=== PATIENT | female | born 1995 | race Caucasian/White ===

== ENCOUNTER 2016-03-29 10:59 | Emergency (ER) | payer SELFPAY ==
[~2016-03-29] VITALS: Ht 160 cm; Wt 88.1 kg
[~2016-03-29 10:59] MED LIST: ASPI-390 PO; HYDR-5688 PO; LOPE2TAB84 PO; ONDA4TAB10 SL; PRLSR20 PO
[2016-03-29 11:03] VITALS: TEMP 36.8; Ht 160 cm; Wt 88.1 kg
[2016-03-29 11:37] LABS: BASO % 0.3 %; BASO ABS # 0.03 K/uL (0-0.2); COMPLETE YES; EOS % 1.7 %; HEMATOCRIT 43.2 % (37-47); IG% 0.2 %; LYMPH % 7.9 %; MEAN CELL VOLUME 86.9 fL (80-100); MEAN CORPUSCULAR HGB CONC 35.6 g/dl (32-36); MEAN PLATELET VOLUME 10.3 fL (7.4-10.4); MONO % 6.2 %; NEUT % 83.7 %; PLATELET COUNT 253 K/uL (130-400); RED BLOOD COUNT 4.97 M/uL (4.2-5.4); WHITE BLOOD COUNT 10.16 K/uL (4.8-10.8)
[2016-03-29 11:43] LABS: URINE APPEARANCE CLEAR (CLEAR); URINE BILIRUBIN NEG (NEG); URINE COLOR YELLOW; URINE EPITHELIAL CELL AUTO >30 /lpf (0-5); URINE NITRITE NEG (NEG); URINE SPECIFIC GRAVITY 1.024 (1.000-1.030); UROBILINOGEN NEG (NEG); ZZUR CULT IF INDIC CLEAN CATCH NO
[2016-03-29 11:44] LABS: MANUAL MICROSCOPIC REQUIRED? NO; REVIEW REQ? NO
[2016-03-29 11:56] LABS: BUN/CREATININE RATIO 12.6 (10-20); CALCIUM 9.1 mg/dl (8.5-10.1); CREATININE 0.99 mg/dl (0.60-1.20); POTASSIUM 3.6 mmol/L (3.5-5.1)
[2016-03-29 11:59] LABS: ALB/GLOB RATIO 1.3 (0.9-2)
[2016-03-29] MEDS ORDERED: OPTIRAY 320 IV PRN (12:45)
[2016-03-29] MEDS ORDERED: ONDANSETRON INJ 2 MG/ML 2 ML VIAL IV STA (13:37)
[2016-03-29] MEDS ORDERED: MoRPHine SULFATE 4 MG/ML 1 ML CARP\\VIAL IV STA (13:37)
--- NOTE | 2016-03-29 16:00 | DIAGNOSTIC IMAGING REPORT ---
CT ABD/PELVIS IV AND ORAL CONT CLINICAL HISTORY: Abdominal pain, nausea, vomiting, diarrhea. History of cholecystectomy. COMPARISON STUDY: Biliary ultrasound dated 02/12/2016 TECHNIQUE: Following the IV administration of 94 mL of Optiray-320, CT scan of the abdomen and pelvis was performed from the lung bases to the proximal femurs. Images are reviewed in the axial, sagittal, and coronal planes. IV contrast was administered without complication. CT DOSE: 644.96 mGy.cm FINDINGS: Lower chest: There are minor right basilar atelectatic changes. Liver: There are no focal hepatic masses. There is no ductal dilatation. The portal vein appears patent. Gallbladder: Surgically absent. Minimal postsurgical changes in the region of the gallbladder bed. No fluid collections to indicate a bile leak. Spleen: Normal in size and attenuation. Pancreas: Unremarkable. Adrenal glands: Unremarkable. Kidneys: There is symmetric renal cortical enhancement. The kidneys are normal in size without hydronephrosis. Bowel: There are no transition zones indicate bowel obstruction. The appendix appears normal. There is no acute diverticulitis. Peritoneum: There is trace free fluid in the pelvis. No free air is visualized. Vasculature: The abdominal aorta is normal in course and caliber. Adenopathy: None. Pelvic viscera: The bladder, and pelvic viscera are unremarkable. Skeletal structures: No destructive osseous lesions are seen. IMPRESSION: 1. No evidence of bowel obstruction. No evidence of free air 2. Normal appendix 3. Trace free fluid in the pelvis 4. Postsurgical changes of a recent cholecystectomy. There are no fluid collections to indicate a significant bile leak. There is no evidence of ductal dilatation. There are no findings to indicate pancreatitis. Electronically signed by: Pedro Fischer M.D. 03/29/2016 3:58 PM Dictated Date/Time: 03/29/2016 3:53 PM
[2016-03-29 16:50] VITALS: BP 122/78; PULSE 67; O2SAT 97
--- NOTE | 2016-03-29 21:07 | EMERGENCY ROOM VISIT NOTE ---
ED Visit Note First contact with patient: 12:08 Chief Complaint: Abdominal pain. History of Present Illness: Ms. Frazier is a 20 year-old white female who ambulates into the ED accompanied by female friend complaining of epigastric and left mid quadrant abdominal pain. Historically patient reports patient reports she is status post cholecystectomy from 02/23/2016. She reports approximately a week after her surgery she had return of abdominal pain associated with nausea and vomiting. At 2 weeks after her surgery her symptoms seemed to resolve at the time of her follow-up with her surgeon but then returned approximately one week ago. On her last follow- up she was scheduled for a outpatient abdominal/pelvic CT and a EGD. She did speak to her surgeon prior to arrival at the ED today because of her symptoms and was encouraged to come to the ED. Patient reports cyclic episodes of increasing nausea, followed by increasing abdominal pain, vomiting and then relief of her discomfort. This happens 3 or 4 times a day for last week. Her symptoms starts typically after eating. Currently she describes her pain as a epigastric throbbing and sharp sensation. She rates her discomfort at its worse 8/10 but is currently 4/10. She denies radiation of the pain but does feel that it radiates over into the left mid quadrant area. She has not identified any alleviating factors related to the symptoms. She reports that she has been using narcotics since surgery and Zofran without relief of her discomfort/symptoms. Additionally she reports intermittently and not always associated with her pain she starts to have hot flashes and about every other day she has 2-3 episodes of brown watery stools that she calls diarrhea. Patient denies betty fevers, sweats, skin eruptions, skin color changes, upper respiratory tract symptoms, shortness of breath, chest pain, hematemesis, constipation, rectal bleeding, black/tarry stools, urinary symptoms, hematuria, vaginal bleeding, vaginal discharge, back/flank pain. Review of Systems: As noted above in history of present illness. All body systems were reviewed and found to be negative as noted above. Past Medical History: As previously noted. Current Medications: Zofran. Allergies to Medications: Augmentin. Social History: Patient is currently employed; she feels safe in her home environment; she admits to tobacco use and denies alcohol use. Physical Examination: Vital Signs: Date Time Temp Pulse Resp B/P Pulse Ox O2 Delivery O2 Flow Rate FiO2 03/29/16 16:50 67 18 122/78 97 03/29/16 15:14 51 18 115/60 98 Room Air 03/29/16 12:59 62 18 118/51 98 Room Air 03/29/16 11:03 36.8 77 16 105/61 96 Room Air GENERAL: 20-year-old female in mild to moderate distress due to pain, nontoxic- appearing, afebrile and hemodynamically stable. NEUROLOGICAL: Awake, alert and oriented to person, place and time. Answering questions appropriately and following commands. Normal gait. Good hand eye coordination. SKIN: Warm, dry and pink. No soft tissue eruptions or trauma noted. Patient's surgical incisions are clean dry and intact without signs of infection. HEENT: Atraumatic and normocephalic. PERRLA. Sclera white and conjunctiva pink. Oral cavity moist and pink. Pharynx is nonerythematous or edematous. Speech normal. No lymphadenopathy. Trachea midline. No jugular venous distention. BACK: No tenderness over the bony spine. No CVA tenderness. THORAX: Lungs sounds are clear to auscultation and equal bilaterally with symmetrical chest wall. No wheezing, rales or rhonchi. No crepitus, tenderness , subcutaneous air or deformities noted. HEART: Regular rate and rhythm. No gallops, rubs or murmurs are appreciated. ABDOMEN: Obese and soft with moderate tenderness in the epigastrium and minimal tenderness in the mid left quadrant. Decreased bowel sounds in all quadrants. No guarding, rigidity or organomegaly. EXTREMITIES: Moves all extremities well on command and with purpose. All distal neurovascular statuses are intact and equal bilaterally. ED Course: Patient is assessed as noted above. Laboratory Testing: Test 03/29/16 11:13 03/29/16 11:19 Range/Units Urine Color YELLOW Urine Appearance CLEAR CLEAR Urine pH 7.0 4.5-7.5 Urine Specific [place] 1.024 1.000-1.030 Urine Protein NEG NEG Urine Glucose (UA) NEG NEG Urine Ketones NEG NEG Urine Occult Blood 2+ NEG Urine Nitrite NEG NEG Urine Bilirubin NEG NEG Urine Urobilinogen NEG NEG Urine Leukocyte Esterase NEG NEG Urine WBC (Auto) 1-5 0-5 /hpf Urine RBC (Auto) 10-30 0-4 /hpf Urine Hyaline Casts (Auto) 1-5 0-5 /lpf Urine Epithelial Cells (Auto) >30 0-5 /lpf Urine Bacteria (Auto) NEG NEG White Blood Count 10.16 4.8-10.8 K/uL Red Blood Count 4.97 4.2-5.4 M/uL Hemoglobin 15.4 12.0-16.0 g/dL Hematocrit 43.2 37-47 % Mean Corpuscular Volume 86.9 80-100 fL Mean Corpuscular Hemoglobin 31.0 25-34 pg Mean Corpuscular Hemoglobin Concent 35.6 32-36 g/dl Platelet Count 253 130-400 K/uL Mean Platelet Volume 10.3 7.4-10.4 fL Neutrophils (%) (Auto) 83.7 % Lymphocytes (%) (Auto) 7.9 % Monocytes (%) (Auto) 6.2 % Eosinophils (%) (Auto) 1.7 % Basophils (%) (Auto) 0.3 % Neutrophils # (Auto) 8.51 1.4-6.5 K/uL Lymphocytes # (Auto) 0.80 1.2-3.4 K/uL Monocytes # (Auto) 0.63 0.11-0.59 K/uL Eosinophils # (Auto) 0.17 0-0.5 K/uL Basophils # (Auto) 0.03 0-0.2 K/uL RDW Standard Deviation 41.6 36.4-46.3 fL RDW Coefficient of Variation 13.1 11.5-14.5 % Immature Granulocyte % (Auto) 0.2 % Immature Granulocyte # (Auto) 0.02 0.00-0.02 K/uL Sodium Level 143 136-145 mmol/L Potassium Level 3.6 3.5-5.1 mmol/L Chloride Level 107 98-107 mmol/L Carbon Dioxide Level 28 21-32 mmol/L Anion Gap 8.0 3-11 mmol/L Blood Urea Nitrogen 12 7-18 mg/dl Creatinine 0.99 0.60-1.20 mg/dl Est Creatinine Clear Calc Drug Dose 95.4 ml/min Estimated GFR () 95.1 Estimated GFR (Non- 82.0 BUN/Creatinine Ratio 12.6 10-20 Random Glucose 96 70-99 mg/dl Calcium Level 9.1 8.5-10.1 mg/dl Total Bilirubin 0.3 0.2-1 mg/dl Aspartate Amino Transf (AST/SGOT) 6 15-37 U/L Alanine Aminotransferase (ALT/SGPT) 19 12-78 U/L Alkaline Phosphatase 55 45-117 U/L Total Protein 7.5 6.4-8.2 gm/dl Albumin 4.2 3.4-5.0 gm/dl Globulin 3.3 2.5-4.0 gm/dl Albumin/Globulin Ratio 1.3 0.9-2 Lipase 90 73-393 U/L Contrast Abdominal/Pelvic CT: Was read by myself and the radiologist and shows minor right basilar atelectasis, no masses, no ductal dilatation and the portal vein appears patent, gallbladder is surgically absent with minimal changes but no fluid collections tunicate week, normal-appearing spleen, normal-appearing pancreas, normal-appearing adrenal glands, normal-appearing kidneys without hydronephrosis, no indication of bowel obstruction, normal-appearing appendix, no acute diverticulitis, trace free fluid in the pelvis but no free air, abdominal aorta is normal in size and course, no adenopathy, pelvic visceral is unremarkable and skeletal structures shows no destructive lesions. I do note that there appears to be a mild increase in fecal retention. Patient was hydrated with normal saline and received a 4 mg of morphine IV for pain and 4 mg of Zofran IV for nausea. Patient was reassessed multiple times during his stay in the emergency department. Patient's case was reviewed with Dr. Bhagat; we agreed on diagnostic approach, treatment, disposition and plan. Patient was educated about tonight's findings and instructed on her treatment plan; she verbalizes understanding and agreement with this plan. Clinical Impression: Epigastric abdominal pain. Nausea/vomiting. Diarrhea. Decision-Making: Initially my differential diagnosis I considered postsurgical abscess, bowel obstruction, postsurgical infections, constipation, pancreatitis , pyelonephritis and other causes. Disposition: Patient discharged home in stable condition; prior to departure she was reassessed and subjectively reported she was feeling better and rated her overall discomfort 4/10. Plan: Patient was encouraged to alternate ibuprofen and acetaminophen as needed for pain every 3 hours. Patient was encouraged to use her Zofran every 4-6 hours as needed for nausea/ vomiting. Patient was encouraged use a bland diet for the next 48 hours. Patient was encouraged to use [id number] Colace and MiraLAX for total 7 days. Patient was encouraged to call her surgeon tomorrow and inform them of tonight' s ED visit. Patient was encouraged return ED for worsening/uncontrolled pain, uncontrolled nausea/vomiting, uncontrolled diarrhea, bloody stools, bloody vomitus, fevers or any new/concerning symptoms.
== END 2016-03-29 16:50 | disposition home or self-care (01) ==
LOC: C.EDB 11:01 → C.EDC 16:50
DX: R10.13 Epigastric pain (principal); R11.2 Nausea with vomiting, unspecified; R19.7 Diarrhea, unspecified

== ENCOUNTER → 2016-04-16 | Day surgery (SDC) | payer SELFPAY ==
[2016-04-13 10:16] VITALS: BMI 33.0
[~2016-04-16] VITALS: Ht 160 cm; Wt 85.5 kg
[~2016-04-16] MED LIST changes: -ASPI-390 PO; -HYDR-5688 PO; +LIDOCAINE HCL 2% 2 ML VIAL (20MG/ML) ONE; -LOPE2TAB84 PO; +METR-163 PO; +MIDAZOLAM HCL 1 MG/ML 2ML VIAL ONE; -ONDA4TAB10 SL; +ONDANSETRON INJ 2 MG/ML 2 ML VIAL ONE; +OXYC1TAB3 PO; -PRLSR20 PO; +PROPOFOL IV EMULSION 10 MG/ML 20 ML VIAL IV ONE; +SODIUM CHLORIDE 0.9% 500ML 500 ML IV ONE; +SULF800T23 PO
[2016-04-16 11:32] VITALS: Ht 160 cm; Wt 85.5 kg
[2016-04-16 11:40] VITALS: TEMP 36.9
--- NOTE | 2016-04-16 12:10 | Endo History and Physical ---
History & Physical Date of Service: Apr 16, 2016. Chief Complaint: chronic vomiting and nausea Referring Physician: Loki Londono History of Present Illness 21 yo CF who presents for EGD secondary to Nausea and vomiting. Past Surgical History Hx Cardiac Surgery: No Hx Internal Defibrillator: No Hx Pacemaker: No Hx Abdominal Surgery: Yes ([facility]) Hx of Implantable Prosthesis: No Hx Post-Op Nausea and Vomiting: No Hx Cancer Surgery: No Hx Thoracic Surgery: No Hx Orthopedic: No Hx Urinary Tract Surgery: No Family History None Social History Smoking Status: Current Every Day Smoker Hx Substance Use: No Hx Alcohol Use: No Allergies Coded Allergies: Amoxicillin (Verified Allergy, Mild, ITCHY RASH, 04/16/16) CALLED ON 05/09/15 Clavulanic Acid (Verified Allergy, Mild, ITCHY RASH, 04/16/16) CALLED ON 05/09/15 Current Medications Reported Home Medications Medications Dose Route/Sig Max Daily Dose Days Date Category No Active Prescriptions or Reported Medications Rx Vital Signs Weight (Kilograms): 85.45 Height (Feet): 5 Height (Inches): 3 Date Time Temp Pulse Resp B/P Pulse Ox O2 Delivery O2 Flow Rate FiO2 04/16/16 11:40 36.9 69 20 99/51 99 Room Air Physical Exam General Appearance: WD/WN, no apparent distress Respiratory/Chest: Auscultation: breath sounds normal Cardiovascular: Heart Auscultation: RRR Abdomen: Bowel Sounds: normal Inspection & Palpation: soft, non-distended, no tenderness, guarding & rebound Assessment and Plan Assessment: 21 yo CF who presents for EGD secondary to Nausea and vomiting. Plan: Proceed with EGD.
--- NOTE | 2016-04-16 12:23 | Discharge Instructions ---
Endoscopy Patient Instructions Date / Procedure(s) Performed Apr 16, 2016. EGD Allergy Information Coded Allergies: Amoxicillin (Verified Allergy, Mild, ITCHY RASH, 04/16/16) CALLED ON 05/09/15 Clavulanic Acid (Verified Allergy, Mild, ITCHY RASH, 04/16/16) CALLED ON 05/09/15 Discharge Date / Findings Apr 16, 2016. Gastritis s/p biopsies Medication Instructions Start Omeprazole 20mg by mouth each morning 1/2 hour prior to breakfast. Reported Home Medications Medications Dose Route/Sig Max Daily Dose Days Date Category No Active Prescriptions or Reported Medications Rx Provider Instructions Activity Restrictions - No exercising or heavy lifting for 24 hours. - Do not drink alcohol the day of the procedure. - Do not drive a car or operate machinery until the day after the procedure. - Do not make any important decisions or sign important papers in 24 hours after the procedure. Following Day: - Return to full activity which may include returning to work/school. Diet Start your diet with liquids and light foods (jello, soup, juice, toast). Then eat your usual diet if not nauseated. Treatment For Common After Affects For mild abdominal pain, bloating, or excessive gas: - Rest - Eat lightly - Lie on right side Follow-Up Information Follow-up with Loki Londono as scheduled Anesthesia Information What You Should Know You have had a procedure that required some medicine to reduce anxiety and discomfort. This treatment is called moderate sedation. After receiving the treatment, you may be sleepy, but you will be able to breathe on your own. The effects of the treatment may last for several hours. Follow these instructions along with Activity/Diet recommendations noted above: * Do NOT do anything where dizziness or clumsiness would be dangerous. * Rest quietly at home today, then you can be up and about tomorrow. * Have a responsible person stay with you the rest of today. * You may have had an I.V. today. If so, you may take the dressing off later today. Recommendations Call your doctor if: * Trouble breathing * Continuous vomiting for more than 24 hours * Temperature above 101 degrees * Severe abdominal pain or bloating * Pain not relieved by pain medicine ordered * There is increased drainage or redness from any incision * A large amount of rectal bleeding greater than 2-3 tablespoons. (If you had a polyp/s removed or have hemorrhoids, a small amount of blood - from the rectum is to be expected.) * You have any unanswered questions or concerns. IN THE EVENT OF A SERIOUS EMERGENCY, GO TO THE NEAREST EMERGENCY ROOM Your discharge instructions were prepared by provider Jessee Trejo. Patient Instructions Signature Page Mary Frazier Patient (or Guardian) Signature/Date: I have read and understand the instructions given to me by my caregivers. Caregiver/RN/Doctor Signature/Date: The above-named patient and/or guardian has received patient instructions on this date. + Original Patient Signature Page (only) stays with chart. Please make copy for patient.
--- NOTE | 2016-04-16 12:27 | GI REPORT ---
Procedure Date: 04/16/2016 12:07 PM Procedure: Upper GI endoscopy Indications: Nausea with vomiting Medicines: Monitored Anesthesia Care Complications: No immediate complications. Estimated Blood Loss: Estimated blood loss: none. Procedure: Pre-Anesthesia Assessment: - Prior to the procedure, a History and Physical was performed, and patient medications and allergies were reviewed. The patient's tolerance of previous anesthesia was also reviewed. The risks and benefits of the procedure and the sedation options and risks were discussed with the patient. All questions were answered, and informed consent was obtained. Prior Anticoagulants: The patient has taken no previous anticoagulant or antiplatelet agents. ASA Grade Assessment: II - A patient with mild systemic disease. After reviewing the risks and benefits, the patient was deemed in satisfactory condition to undergo the procedure. After obtaining informed consent, the endoscope was passed under direct vision. Throughout the procedure, the patient's blood pressure, pulse, and oxygen saturations were monitored continuously. The scope was introduced through the mouth, and advanced to the second part of duodenum. The upper GI endoscopy was accomplished without difficulty. The patient tolerated the procedure well. Findings: The examined esophagus was normal. Localized mild inflammation characterized by erythema was found in the gastric antrum. Biopsies were taken with a cold forceps for histology. The examined duodenum was normal. Impression: - Normal esophagus. - Gastritis. Biopsied. - Normal examined duodenum. Recommendation: - Resume previous diet. - Continue present medications. - Await pathology results. - Return to GI office as previously scheduled. Jessee Trejo, DO 04/16/2016 12:28:15 PM This report has been signed electronically. Note Initiated On: 04/16/2016 12:07 PM I attest to the content of the Intraoperative Record and orders documented therein, exceptions below
[2016-04-16 12:55] VITALS: BP 104/64; PULSE 51; O2SAT 97
--- NOTE | 2016-04-16 12:59 | Anesthesiology Progress Note ---
Anesthesia Post Op Note Date & Time Apr 16, 2016 at 13:00 Vital Signs Pain Intensity: 0 Vital Signs Past 12 Hours Date Time Temp Pulse Resp B/P Pulse Ox O2 Delivery O2 Flow Rate FiO2 04/16/16 12:40 52 97/58 97 Room Air 04/16/16 12:25 62 20 92/69 93 Room Air 04/16/16 11:40 36.9 69 20 99/51 99 Room Air Notes Mental Status: alert / awake / arousable, participated in evaluation Pt Amnestic to Procedure: Yes Nausea / Vomiting: adequately controlled Pain: adequately controlled Airway Patency, RR, SpO2: stable & adequate BP & HR: stable & adequate Hydration State: stable & adequate Anesthetic Complications: no major complications apparent
== END | disposition home or self-care (01) ==
LOC: C.GI 11:13
PROVIDERS: ATTEND Internal Medicine
DX: R11.2 Nausea with vomiting, unspecified (principal); K29.60 Other gastritis without bleeding; F17.200 Nicotine dependence, unspecified, uncomplicated; Z90.49 Acquired absence of other specified parts of digestive tract

== ENCOUNTER → 2016-08-31 | Outpatient (CLI) | payer OTHER ==
[~2016-08-31] MED LIST changes: -LIDOCAINE HCL 2% 2 ML VIAL (20MG/ML) ONE; -MIDAZOLAM HCL 1 MG/ML 2ML VIAL ONE; -ONDANSETRON INJ 2 MG/ML 2 ML VIAL ONE; -PROPOFOL IV EMULSION 10 MG/ML 20 ML VIAL IV ONE; -SODIUM CHLORIDE 0.9% 500ML 500 ML IV ONE
== END ==
LOC: C.PAPS 09:34
PROVIDERS: ATTEND Physician Assistant
DX: Z12.4 Encounter for screening for malignant neoplasm of cervix (principal)

== ENCOUNTER → 2016-08-31 | Outpatient (CLI) | payer OTHER ==
[2016-09-03 07:27] LABS: CHLAMYDIA TRACH RNA*** NOT DETECTED (NOT DETECTED); GC (NEIS GONORRHOEAE)RNA** NOT DETECTED (NOT DETECTED)
== END ==
LOC: C.LABSPEC 17:42
PROVIDERS: ATTEND Physician Assistant
DX: Z12.4 Encounter for screening for malignant neoplasm of cervix (principal)

== ENCOUNTER → 2016-09-17 | Outpatient (CLI) | payer OTHER | END | disposition home or self-care (01) | LOC: C.LAB1850 15:26 | PROVIDERS: ATTEND Physician Assistant | DX: Z20.6 Contact with and (suspected) exposure to human immunodeficiency virus [HIV] (principal) ==

== ENCOUNTER 2016-11-08 20:27 | Emergency (ER) | payer OTHER ==
[~2016-11-08] VITALS: Ht 160 cm; Wt 75.5 kg
[2016-11-08 20:31] VITALS: BP 123/80; PULSE 77; TEMP 36.7; O2SAT 97; Ht 160 cm; Wt 75.5 kg
[2016-11-08] MEDS ORDERED: HYDROmorphone INJ 1 MG/ML SYR IM STA (20:40)
[2016-11-08] MEDS ORDERED: ONDANSETRON 4MG OD TAB PO STA (20:40)
[2016-11-08] MEDS ORDERED: KETOROLAC TROMETHAMINE 60 MG/2 ML VIAL IM STA (20:40)
[2016-11-08] MEDS ORDERED: METRONIDAZOLE 250 MG TAB PO STA ×2 (20:40→22:05)
[2016-11-08] MEDS ORDERED: SEPTRA DS HOME PACK 1 EA VIAL PO ONE (20:45)
--- NOTE | 2016-11-08 21:23 | DIAGNOSTIC IMAGING REPORT ---
LEFT HAND MIN 3 VIEWS ROUTINE, RIGHT HAND MIN 3 VIEWS ROUTINE HISTORY: 21 years-old Female acute bilateral hand pain status post dog bite COMPARISON: None available TECHNIQUE: 3 views of the bilateral hands for a total of 6 images FINDINGS: LEFT HAND: There is no acute fracture, dislocation or significant degenerative changes. Negative for opaque foreign body. RIGHT HAND: No acute fracture, dislocation or significant degenerative changes. Negative for opaque foreign body. There is mild focal skin irregularity and soft tissue thickening of the distal fourth digit. IMPRESSION: 1. No acute bony abnormality of either hand. 2. No radiopaque foreign body. 3. Suggested laceration of the distal fourth digit on the right. The above report was generated using voice recognition software. It may contain grammatical, syntax or spelling errors. Electronically signed by: Alex Kate M.D. 11/08/2016 9:22 PM Dictated Date/Time: 11/08/2016 9:19 PM
[2016-11-08] MEDS ORDERED: METR-163 PO (21:42)
[2016-11-08] MEDS ORDERED: OXYC1TAB3 PO (21:42)
[2016-11-08] MEDS ORDERED: SULF800T23 PO (21:42)
[2016-11-08] MEDS ORDERED: OXYCODONE IR HOME PACK PO ONE (22:15)
--- NOTE | 2016-11-08 22:16 | EMERGENCY ROOM VISIT NOTE ---
History First contact with patient: 20:34 Chief Complaint: HAND PAIN/INJURY Stated Complaint: BILATERAL HAND INJURIES History of Present Illness The patient is a 21 year old female who presents to the Emergency Room with complaints of injuries to both hands after attempting to break up a fight between her 2 dogs. The dog examination's are up-to-date, and the patient's tetanus immunization is up-to-date. She reports several puncture wounds to the fingers. She denies any pain of the wrist or elbows. The patient is right-hand -dominant, and rates her pain a 10 out of 10. Review of Systems 10 system review was performed and was negative except for pertinent positives and negatives as indicated in history of present illness Past Medical/Surgical History Medical Problems: (1) Abrasion of head or scalp (2) ACTIVITIES INVOLVING CHEERLEADING (3) Acute gastroenteritis (4) CONCUSSION W/O COMA (5) CONTUSION OF HAND(S) (6) Contusion of heel (7) CONTUSION OF KNEE (8) FX DISTAL ULNA-CLOSED (9) FX METATARSAL-CLOSED (10) Head injury (11) Nausea, vomiting, and diarrhea (12) Pneumonia (13) Pneumonia (14) Right otitis media (15) SPRAIN OF ANKLE NOS (16) SPRAIN OF FOOT NOS (17) SPRAIN OF NECK (18) UTI (urinary tract infection) Surgical Problems: (1) S/P tube myringotomy Family History Cancer Diabetes mellitus FH: migraines Social History Smoking Status: Current Every Day Smoker Alcohol Use: none Drug Use: none Marital Status: single Housing Status: lives with roommate Occupation Status: employed, student Current/Historical Medications Scheduled Metronidazole (Flagyl), 500 MG PO TID Sulfa/Trimethoprim (Bactrim Ds 800MG/160MG), 1 TAB PO BID Scheduled PRN Oxycodone Ir (Roxicodone Ir), 1-2 TAB PO Q4H PRN for Pain Physical Exam Vital Signs Date Time Temp Pulse Resp B/P (MAP) Pulse Ox O2 Delivery O2 Flow Rate FiO2 11/08/16 20:31 36.7 77 18 123/80 97 Room Air Physical Exam CONSTITUTIONAL: Healthy and well nourished. Alert and oriented X 3 with positive affect. Patient appears in moderate discomfort from pain. HEENT: Normocephalic, atraumatic. Pupils equal, round and reactive. NECK: Full active range of motion without discomfort. MUSCULOSKELETAL: Examination shows several puncture wounds and abrasions to both hands. None of the puncture wounds require wound closure. She has moderate edema of both hands. No active bleeding. Capillary refill of the fingers is less than 2 seconds. INTEGUMENTARY: No rash or other significant dermatologic conditions noted. NEUROLOGIC: Hands and fingers are sensory intact. Medical Decision & Procedures ER Provider Diagnostic Interpretation: My interpretation of bilateral hand x-rays does not show any obvious fractures, dislocations or radiopaque foreign bodies. Radiologist reports are as follows: LEFT HAND MIN 3 VIEWS ROUTINE, RIGHT HAND MIN 3 VIEWS ROUTINE HISTORY: 21 years-old Female acute bilateral hand pain status post dog bite COMPARISON: None available TECHNIQUE: 3 views of the bilateral hands for a total of 6 images FINDINGS: LEFT HAND: There is no acute fracture, dislocation or significant degenerative changes. Negative for opaque foreign body. RIGHT HAND: No acute fracture, dislocation or significant degenerative changes. Negative for opaque foreign body. There is mild focal skin irregularity and soft tissue thickening of the distal fourth digit. IMPRESSION: 1. No acute bony abnormality of either hand. 2. No radiopaque foreign body. 3. Suggested laceration of the distal fourth digit on the right. Medications Administered Medications (Trade) Dose Ordered Sig/Che Route Start Time Stop Time Status Last Admin Dose Admin Trimethoprim/ Sulfamethoxazole (Sulfameth/ Trimeth Ds 800/ 160MG Home Pack) 1 homepack UD ONCE PO 11/08/16 20:45 11/08/16 20:46 DC 11/08/16 20:57 1 HOMEPACK Metronidazole (Flagyl Tab) 1,000 mg NOW STAT PO 11/08/16 20:40 11/08/16 20:46 DC 11/08/16 20:57 1,000 MG Hydromorphone HCl (Dilaudid Inj) 1 mg ONE STAT IM 11/08/16 20:40 11/08/16 20:46 DC 11/08/16 20:57 1 MG Ketorolac Tromethamine (Toradol Inj) 60 mg NOW STAT IM 11/08/16 20:40 11/08/16 20:46 DC 11/08/16 20:58 60 MG Ondansetron HCl (Zofran Odt) 4 mg NOW STAT PO 11/08/16 20:40 11/08/16 20:46 DC 11/08/16 20:57 4 MG ED Course Patient history and physical exam were performed. Nurse's notes were reviewed. Vital signs were reviewed and normal. The patient was administered IM Dilaudid and Toradol, along with Zofran ODT, for pain. She was also administered Bactrim DS and Flagyl 500 mg while in the emergency department. The patient does have a rather severe allergic reaction to amoxicillin. X-rays of bilateral hands were normal. The patient's hands were cleansed, and bacitracin with scarlet taping of appropriate fingers was applied. The patient was provided home packs and prescriptions for Bactrim DS, Flagyl and OxyIR 5 mg. The patient will follow-up with [facility] for further reevaluation. The patient was happy with plan of care, voiced understanding of all discharge instructions, and rated her pain a 3 out of 10 at the conclusion of my exam. Medical Decision [place] Drug Monitoring Program Search Results: patient reviewed within database, no issues identified Medication Reconcilliation Current Medication List: was personally reviewed by [place] Blood Pressure Screening Patient's blood pressure: Normal blood pressure Impression Primary Impression: Dog bites to bilateral hands Departure Information Prescriptions Oxycodone Ir (Roxicodone Ir) 5 Mg Tab 1-2 TAB PO Q4H Y for Pain, #15 TAB For Initial Treatment Prov: Salvador Chao PA 11/08/16 Metronidazole (Flagyl) 500 Mg Tab 500 MG PO TID for Pain for 5 Days, #15 TAB For Initial Treatment Prov: Salvador Chao PA 11/08/16 Sulfa/Trimethoprim (Bactrim Ds 800MG/160MG) Tab 1 TAB PO BID for 5 Days, #10 TAB Prov: Salvador Chao PA 11/08/16 Referrals Randy Gaines III, M.D. (PCP) Patient Instructions My [facility]
== END 2016-11-08 22:06 | disposition home or self-care (01) ==
LOC: C.EDB 20:29 → C.EDD 22:06
DX: S61.451A Open bite of right hand, initial encounter (principal); S61.452A Open bite of left hand, initial encounter; W54.0XXA Bitten by dog, initial encounter; Z87.01 Personal history of pneumonia (recurrent); Z87.440 Personal history of urinary (tract) infections; Z80.9 Family history of malignant neoplasm, unspecified; Z83.3 Family history of diabetes mellitus; F17.210 Nicotine dependence, cigarettes, uncomplicated

== ENCOUNTER 2017-04-20 17:39 | Emergency (ER) | payer OTHER ==
[~2017-04-20] VITALS: Ht 157.5 cm; Wt 81.8 kg
[~2017-04-20 17:39] MED LIST changes: -METR-163 PO; -SULF800T23 PO
[2017-04-20 17:41] VITALS: TEMP 36.8; Ht 157.5 cm; Wt 81.8 kg
[2017-04-20] MEDS ORDERED: SODIUM CHLORIDE 0.9% 1000ML 1,000 ML IV STA (17:58)
[2017-04-20 18:29] LABS: BASO % 0.4 %; BASO ABS # 0.03 K/uL (0-0.2); EOS % 0.9 %; EOS ABS # 0.07 K/uL (0-0.5); HEMATOCRIT 41.9 % (37-47); HEMOGLOBIN 14.7 g/dL (12.0-16.0); IG# 0.01 K/uL (0.00-0.02); LYMPH % 6.8 %; LYMPH ABS # 0.53 K/uL (1.2-3.4); MEAN CELL VOLUME 88.4 fL (80-100); MEAN CORPUSCULAR HGB CONC 35.1 g/dl (32-36); MEAN PLATELET VOLUME 9.9 fL (7.4-10.4); MONO % 7.1 %; MONO ABS # 0.56 K/uL (0.11-0.59); NEUT % 84.7 %; NEUT ABS # 6.65 K/uL (1.4-6.5); PLATELET COUNT 198 K/uL (130-400); RED CELL DISTRIBUTION WIDTH CV 12.6 % (11.5-14.5); RED CELL DISTRIBUTION WIDTH SD 40.5 fL (36.4-46.3); WHITE BLOOD COUNT 7.85 K/uL (4.8-10.8)
[2017-04-20 18:44] LABS: ALBUMIN 3.8 gm/dl (3.4-5.0); CALCIUM 8.6 mg/dl (8.5-10.1); CREATININE 0.89 mg/dl (0.60-1.20); POTASSIUM 3.2 mmol/L (3.5-5.1)
[2017-04-20 18:47] LABS: TOTAL PROTEIN 7.2 gm/dl (6.4-8.2)
--- NOTE | 2017-04-20 19:01 | DIAGNOSTIC IMAGING REPORT ---
ABDOMEN 2VIEW W/PA CHEST RTN CLINICAL HISTORY: 22 years-old Female presenting with n/v/d. TECHNIQUE: PA view of the chest and supine and upright views of the abdomen were obtained. COMPARISON: CT from 03/29/2016 and chest and abdomen radiographs from 02/12/2016. FINDINGS: Cardiomediastinal silhouette normal. Lungs and pleural spaces clear. Cholecystectomy clips noted. Nonobstructive bowel gas pattern. No gross pneumoperitoneum. Allowing for bowel gas and stool, no calcifications to suggest nephrolithiasis. Osseous structures normal. IMPRESSION: 1. No acute cardiopulmonary disease. 2. No radiographic evidence of acute intra-abdominal pathology. Electronically signed by: Shilo Thomas M.D. 04/20/2017 7:00 PM Dictated Date/Time: 04/20/2017 6:58 PM
[2017-04-20 19:03] LABS: INFLUENZA B ANTIGEN Neg for Influ B (NEG)
[2017-04-20] MEDS ORDERED: ONDANSETRON 8 MG/54 ML D5W IV STA (19:56)
[2017-04-20] MEDS ORDERED: ONDANSETRON INJ 8 MG in DEXTROSE 5% 50ML 50 ML IV ONE (20:45)
--- NOTE | 2017-04-20 21:01 | EMERGENCY ROOM VISIT NOTE ---
History Report prepared by Toño: Cinthia Lamar Under the Supervision of: Dr. Marlyn Don D.O. First contact with patient: 17:46 Chief Complaint: FLU LIKE SX Stated Complaint: PUKING, BODY ACHE, FEVER, DIARRHEA, NECK PAIN History of Present Illness The patient is a 22 year old female who presents to the Emergency Room with complaints of persistent illness starting 4 days ago. Her symptoms started with vomiting 4 days ago. She started having diarrhea 2 days ago. Her stools have been watery. She is nauseous and unable to keep anything down. Today she started having right sided neck pain which worsens with turning her head. She reports intermittent fever and chills. She has not taken her temperature. She has tried taking over the counter medications to no significant relief. She has rash, abdominal pain, and body aches. She denies any blood or dark colors in her vomit or diarrhea. Her friend was recently sick with vomiting and diarrhea which lasted 24 hours. She denies any chance of . She has had a cholecystectomy. No recent travel, no dietary changes, no recent use of antibiotics. Source of History: patient Onset: 4 days ago Position: other (global) Quality: other (illness) Timing: other (persistent) Associated Symptoms: + fevers, + chills, + neck pain, + nausea, + vomiting, + abdominal pain, + diarrhea, No melena, No hematochezia, No rash Review of Systems See HPI for pertinent positives & negatives. A total of 10 systems reviewed and were otherwise negative. Past Medical & Surgical Medical Problems: (1) Abrasion of head or scalp (2) ACTIVITIES INVOLVING CHEERLEADING (3) Acute gastroenteritis (4) CONCUSSION W/O COMA (5) CONTUSION OF HAND(S) (6) Contusion of heel (7) CONTUSION OF KNEE (8) FX DISTAL ULNA-CLOSED (9) FX METATARSAL-CLOSED (10) Head injury (11) Nausea, vomiting, and diarrhea (12) Pneumonia (13) Pneumonia (14) Right otitis media (15) SPRAIN OF ANKLE NOS (16) SPRAIN OF FOOT NOS (17) SPRAIN OF NECK (18) UTI (urinary tract infection) Surgical Problems: (1) S/P tube myringotomy Family History Cancer Diabetes mellitus FH: migraines Social History Smoking Status: Current Every Day Smoker Alcohol Use: none Drug Use: none Marital Status: single Housing Status: lives with roommate Occupation Status: employed Current/Historical Medications Scheduled Ondasetron Odt (Zofran Odt), 4 MG SL Q6H Allergies Coded Allergies: Amoxicillin (Verified Allergy, Intermediate, ITCHY RASH, 11/08/16) CALLED ON 05/09/15 Clavulanic Acid (Verified Allergy, Intermediate, ITCHY RASH, 11/08/16) CALLED ON 05/09/15 Physical Exam Vital Signs Date Time Temp Pulse Resp B/P (MAP) Pulse Ox O2 Delivery O2 Flow Rate FiO2 04/20/17 21:40 70 16 110/80 100 04/20/17 20:30 80 16 112/70 97 04/20/17 17:41 36.8 93 18 104/70 97 Room Air Physical Exam GENERAL: alert, well appearing, well nourished, no distress, non-toxic EYE EXAM: normal conjunctiva, PERRL and EOM's grossly intact OROPHARYNX: no exudate, no erythema, lips, buccal mucosa, and tongue normal and mucous membranes are moist NECK: supple, no nuchal rigidity, no masses, no adenopathy, no reproducible pain with palpation of the neck, FROM LUNGS: Clear to auscultation. Normal chest wall mechanics HEART: no murmurs, S1 normal and S2 normal ABDOMEN: abdomen soft, non-tender, normo-active bowel sounds, no masses, no rebound or guarding. BACK: Back is symmetrical on inspection and there is no deformity, no midline tenderness, no CVA tenderness. SKIN: no rashes and no bruising UPPER EXTREMITIES: upper extremities are grossly normal. FROM, nml pulses. LOWER EXTREMITIES: No pitting edema. FROM, nml pulses. NEURO EXAM: Normal sensorium, cranial nerves II-XII grossly intact, normal speech, no gross weakness of arms, no gross weakness of legs. Medical Decision & Procedures ER Provider Diagnostic Interpretation: Xray results have been interpreted by the radiologist and by me. ABDOMEN 2VIEW W/PA CHEST RTN CLINICAL HISTORY: 22 years-old Female presenting with n/v/d. TECHNIQUE: PA view of the chest and supine and upright views of the abdomen were obtained. COMPARISON: CT from 03/29/2016 and chest and abdomen radiographs from 02/12/2016. FINDINGS: Cardiomediastinal silhouette normal. Lungs and pleural spaces clear. Cholecystectomy clips noted. Nonobstructive bowel gas pattern. No gross pneumoperitoneum. Allowing for bowel gas and stool, no calcifications to suggest nephrolithiasis. Osseous structures normal. IMPRESSION: 1. No acute cardiopulmonary disease. 2. No radiographic evidence of acute intra-abdominal pathology. Electronically signed by: Shilo Thomas M.D. 04/20/2017 7:00 PM Dictated Date/Time: 04/20/2017 6:58 PM Laboratory Results 04/20/17 18:15 Red Blood Count 4.74, Mean Corpuscular Volume 88.4, Mean Corpuscular Hemoglobin 31.0, Mean Corpuscular Hemoglobin Concent 35.1, Mean Platelet Volume 9.9, Neutrophils (%) (Auto) 84.7, Lymphocytes (%) (Auto) 6.8, Monocytes (%) (Auto) 7.1, Eosinophils (%) (Auto) 0.9, Basophils (%) (Auto) 0.4, Neutrophils # (Auto) 6.65, Lymphocytes # (Auto) 0.53, Monocytes # (Auto) 0.56, Eosinophils # (Auto) 0.07, Basophils # (Auto) 0.03 04/20/17 18:15 Test 04/20/17 18:15 04/20/17 18:21 04/20/17 18:30 White Blood Count 7.85 K/uL (4.8-10.8) Red Blood Count 4.74 M/uL (4.2-5.4) Hemoglobin 14.7 g/dL (12.0-16.0) Hematocrit 41.9 % (37-47) Mean Corpuscular Volume 88.4 fL (80-100) Mean Corpuscular Hemoglobin 31.0 pg (25-34) Mean Corpuscular Hemoglobin Concent 35.1 g/dl (32-36) Platelet Count 198 K/uL (130-400) Mean Platelet Volume 9.9 fL (7.4-10.4) Neutrophils (%) (Auto) 84.7 % Lymphocytes (%) (Auto) 6.8 % Monocytes (%) (Auto) 7.1 % Eosinophils (%) (Auto) 0.9 % Basophils (%) (Auto) 0.4 % Neutrophils # (Auto) 6.65 K/uL (1.4-6.5) Lymphocytes # (Auto) 0.53 K/uL (1.2-3.4) Monocytes # (Auto) 0.56 K/uL (0.11-0.59) Eosinophils # (Auto) 0.07 K/uL (0-0.5) Basophils # (Auto) 0.03 K/uL (0-0.2) RDW Standard Deviation 40.5 fL (36.4-46.3) RDW Coefficient of Variation 12.6 % (11.5-14.5) Immature Granulocyte % (Auto) 0.1 % Immature Granulocyte # (Auto) 0.01 K/uL (0.00-0.02) Anion Gap 7.0 mmol/L (3-11) Est Creatinine Clear Calc Drug Dose 98.3 ml/min Estimated GFR () 106.6 Estimated GFR (Non- 92.0 BUN/Creatinine Ratio 10.8 (10-20) Calcium Level 8.6 mg/dl (8.5-10.1) Total Bilirubin 0.6 mg/dl (0.2-1) Aspartate Amino Transf (AST/SGOT) 9 U/L (15-37) Alanine Aminotransferase (ALT/SGPT) 16 U/L (12-78) Alkaline Phosphatase 61 U/L (45-117) Total Protein 7.2 gm/dl (6.4-8.2) Albumin 3.8 gm/dl (3.4-5.0) Globulin 3.4 gm/dl (2.5-4.0) Albumin/Globulin Ratio 1.1 (0.9-2) Human Chorionic Gonadotropin, Qual NEG (NEG) Bedside Lactic Acid Venous 0.45 mmol/L (0.90-1.70) Influenza Type A Antigen Neg for Influ A (NEG) Influenza Type B Antigen Neg for Influ B (NEG) Laboratory results per my review. Medications Administered Medications (Trade) Dose Ordered Sig/Che Route Start Time Stop Time Status Last Admin Dose Admin Sodium Chloride 1,000 ml @ 999 mls/hr Q1H1M STAT IV 04/20/17 17:58 04/20/17 18:58 DC 04/20/17 18:23 999 MLS/HR Ondansetron HCl 8 mg/Dextrose 54 ml @ 216 mls/hr TODAY@2044 ONCE IV 04/20/17 20:45 04/20/17 20:59 DC 04/20/17 20:53 216 MLS/HR Ondansetron HCl (ZOFRAN ODT 4MG Home Pack) 1 homepack UD ONCE PO 04/20/17 21:30 04/20/17 21:31 DC 04/20/17 21:40 1 HOMEPACK ECG Indication: vomiting Rate (beats per minute): 77 Rhythm: sinus rhythm Findings: no acute ischemic change, no ectopy, other (normal axis, normal intervals, low voltage throughout) Change: EKG: Patient's electrocardiogram per my interpretation. ED Course 1747: The patient was evaluated in room A12B. A complete history and physical exam was performed. 1757: NSS 1000 ml @ 999 mls/hr IV. 1942: I reevaluated the patient. She is still having vomiting and diarrhea. 2039: I reevaluated the patient. She is starting to have some ice chips. 2044: Ondansetron HCl 8 mg/Dextrose 54 ml @ 216 mls/hr IV. 2124: Upon reevaluation, the patient is feeling better. I discussed the findings and the treatment plan with the patient. She verbalizes agreement and understanding. She was discharged home. 2129: Ondansetron HCl 1 homepack PO. Medical Decision Differential diagnosis: Etiologies such as gastroenteritis, food borne illness, infections, appendicitis , diverticulitis, inflammatory bowel disease, obstruction, GI bleed, biliary pathology, as well as others were entertained. Patient with single episode of vomiting here and single episode of diarrhea. No blood noted in either. Patient's vital signs stable and patient stated she felt improved following IV fluids and Zofran. Labs otherwise reassuring, imaging reassuring, did not feel patient warranted additional imaging at this time. Likely viral syndrome given recent sick contacts. Discussed with her hydration, diet, use of Zofran at home, symptoms to watch and return for, follow -up with family doctor as a precaution, she verbalized understanding and was agreeable with plan. Doubt ischemic colitis, GI bleed, perf, bacteremia/sepsis , peptic ulcer disease, occult vascular pathology, occult pulmonary pathology. Doubt C. difficile. Patient tolerating p.o. and ambulating with a steady gait at time of discharge. Medication Reconcilliation Current Medication List: was personally reviewed by me Blood Pressure Screening Patient's blood pressure: Normal blood pressure Blood pressure disposition: Did not require urgent referral Impression Primary Impression: Influenza-like symptoms Additional Impression: Nausea, vomiting, and diarrhea Scribe Attestation The scribe's documentation has been prepared under my direction and personally reviewed by me in its entirety. I confirm that the note above accurately reflects all work, treatment, procedures, and medical decision making performed by me. Departure Information Dispostion Home / Self-Care Prescriptions Ondasetron Odt (ZOFRAN ODT) 4 Mg Tab 4 MG SL Q6H for Nausea, #20 TAB Prov: Marlyn Don, DO 04/20/17 Referrals Randy Gaines III, M.D. (PCP) Patient Instructions My [facility] Additional Instructions You may use the nausea medication as prescribed. Please try to sip clear liquids and frequent intervals to stay well-hydrated. You may use Tylenol or ibuprofen as needed for pain. If you have any worsening abdominal pain, recurrent vomiting, increased diarrhea, noticed blood in her vomit or stool, develop pressure sores, trouble breathing, worsening cough, passing out, dizziness, you have any other new concerns, please return to the emergency room. Problem Qualifiers
[2017-04-20] MEDS ORDERED: ONDA4TAB10 SL (21:02)
[2017-04-20] MEDS ORDERED: ONDANSETRON HOME PACK 4MG OD TAB PO ONE (21:30)
[2017-04-20 21:40] VITALS: BP 110/80; PULSE 70; O2SAT 100
--- NOTE | 2017-04-22 14:08 | Pharmacy Progress Note ---
ED Pharmacist Progress Note Date of Service: Apr 22, 2017. Patient called stating she was expecting a Rx for a Z-eron, however did not receive one. I reviewed Dr Don's note from her visit and she made no mention of a Z-eron , rather Zofran was the only Rx given. Patient was diagnosed with a viral illness as being most likely cause of NVD and body aches. I explained to the patient that ther was no mention of a Z-eron. Pt felt she needed antibiotics because the control director had told her she would be receiving a Z-Eron. I saw no mention of this in the RN's notes either. I explained that viral illness cannot be treated with a Z-eron. She stated she felt she needed an antibiotic and would contact her PCP Dr Gaines.
== END 2017-04-20 21:45 | disposition home or self-care (01) ==
LOC: C.EDB 17:41 → C.EDA 21:45
DX: R11.2 Nausea with vomiting, unspecified (principal); R19.7 Diarrhea, unspecified; R50.9 Fever, unspecified; R21 Rash and other nonspecific skin eruption; R10.9 Unspecified abdominal pain; Z87.01 Personal history of pneumonia (recurrent); Z87.440 Personal history of urinary (tract) infections; Z80.9 Family history of malignant neoplasm, unspecified; Z83.3 Family history of diabetes mellitus; F17.210 Nicotine dependence, cigarettes, uncomplicated; Z88.1 Allergy status to other antibiotic agents

== ENCOUNTER → 2017-06-04 | Outpatient (CLI) | payer OTHER ==
[~2017-06-04] MED LIST changes: +ONDA4TAB10 SL; -OXYC1TAB3 PO
== END | disposition home or self-care (01) ==
LOC: C.LABSPEC 17:30
PROVIDERS: ATTEND Physician Assistant
DX: L29.8 Other pruritus (principal)

== ENCOUNTER 2017-06-21 13:37 | Emergency (ER) | payer OTHER ==
[~2017-06-21] VITALS: Ht 157.5 cm; Wt 80.1 kg
[2017-06-21 13:44] VITALS: TEMP 36.7; Ht 157.5 cm; Wt 80.1 kg
[2017-06-21] MEDS ORDERED: SODIUM CHLORIDE 0.9% 1000ML 1,000 ML IV ONE ×2 (14:15)
[2017-06-21] MEDS ORDERED: ONDANSETRON INJ 2 MG/ML 2 ML VIAL IV PRN (14:15)
--- NOTE | 2017-06-21 14:26 | EMERGENCY ROOM VISIT NOTE ---
History First contact with patient: 14:01 Chief Complaint: VOMITING Stated Complaint: VOMITING,NAUSEA,LEFT HIP NUMBNESS History of Present Illness The patient is a 22 year old female who presents to the Emergency Room with complaints of nausea and vomiting over the last 4 days. The patient has having difficulty keeping down any solid food. She denies any significant abdominal pain. No changes in bowel movements. Her last bowel movement was this morning and reportedly normal. Patient had a positive test last week. Her last menstrual period was May 10. This is her first . She is scheduled to see [facility] in 2 weeks. She denies any fever or chills. No urinary symptoms. She does feel weak and dehydrated. Review of Systems 10 system review performed and negative unless noted in HPI or below Past Medical/Surgical History Medical Problems: (1) Abrasion of head or scalp (2) ACTIVITIES INVOLVING CHEERLEADING (3) Acute gastroenteritis (4) CONCUSSION W/O COMA (5) CONTUSION OF HAND(S) (6) Contusion of heel (7) CONTUSION OF KNEE (8) FX DISTAL ULNA-CLOSED (9) FX METATARSAL-CLOSED (10) Head injury (11) Nausea, vomiting, and diarrhea (12) Pneumonia (13) Pneumonia (14) Right otitis media (15) SPRAIN OF ANKLE NOS (16) SPRAIN OF FOOT NOS (17) SPRAIN OF NECK (18) UTI (urinary tract infection) Surgical Problems: (1) S/P tube myringotomy Status post cholecystectomy Family History Cancer Diabetes mellitus FH: migraines Social History Smoking Status: Former Smoker Alcohol Use: none Drug Use: none Marital Status: single Housing Status: lives with roommate Occupation Status: employed Current/Historical Medications Scheduled Azithromycin (Zithromax Z-Eron), 1 PKT PO UD Ondasetron Odt (Zofran Odt), 4 MG SL Q6H Physical Exam Vital Signs Date Time Temp Pulse Resp B/P (MAP) Pulse Ox O2 Delivery O2 Flow Rate FiO2 06/21/17 17:17 80 18 110/64 99 06/21/17 15:46 70 16 111/61 100 Room Air 06/21/17 13:44 36.7 63 20 110/70 99 Room Air Physical Exam VITALS: Vitals are noted on the nurse's note and reviewed by myself. Vital signs stable. GENERAL: 22-year-old female, in no acute distress, nondiaphoretic, well- developed well-nourished. SKIN: The skin was without rashes, erythema, edema, or bruising. HEAD: Normocephalic atraumatic. MOUTH: Mucous membranes very dry NECK: Supple without nuchal rigidity. No lymphadenopathy. Cervical spine is nontender. No JVD. HEART: Regular rate and rhythm without murmurs gallops or rubs. LUNGS: Clear to auscultation bilaterally without wheezes, rales or rhonchi. No accessory muscle use. ABDOMEN: Positive bowel sounds x 4.Soft, nontender, without organomegaly. No guarding or rebound tenderness. MUSCULOSKELETAL: No muscle atrophy, erythema, or edema noted. Strength 5/5 throughout. NEURO: Patient was alert and oriented to person place and time. Normal sensation to touch. No focal neurological deficits. Medical Decision & Procedures Laboratory Results 06/21/17 14:37 Red Blood Count 4.88, Mean Corpuscular Volume 87.7, Mean Corpuscular Hemoglobin 31.1, Mean Corpuscular Hemoglobin Concent 35.5, Mean Platelet Volume 9.6, Neutrophils (%) (Auto) 83.8, Lymphocytes (%) (Auto) 9.4, Monocytes (%) (Auto) 6.0, Eosinophils (%) (Auto) 0.4, Basophils (%) (Auto) 0.2, Neutrophils # (Auto) 7.45, Lymphocytes # (Auto) 0.84, Monocytes # (Auto) 0.53, Eosinophils # (Auto) 0.04, Basophils # (Auto) 0.02 06/21/17 14:37 Test 06/21/17 14:37 06/21/17 15:05 White Blood Count 8.90 K/uL (4.8-10.8) Red Blood Count 4.88 M/uL (4.2-5.4) Hemoglobin 15.2 g/dL (12.0-16.0) Hematocrit 42.8 % (37-47) Mean Corpuscular Volume 87.7 fL (80-100) Mean Corpuscular Hemoglobin 31.1 pg (25-34) Mean Corpuscular Hemoglobin Concent 35.5 g/dl (32-36) Platelet Count 241 K/uL (130-400) Mean Platelet Volume 9.6 fL (7.4-10.4) Neutrophils (%) (Auto) 83.8 % Lymphocytes (%) (Auto) 9.4 % Monocytes (%) (Auto) 6.0 % Eosinophils (%) (Auto) 0.4 % Basophils (%) (Auto) 0.2 % Neutrophils # (Auto) 7.45 K/uL (1.4-6.5) Lymphocytes # (Auto) 0.84 K/uL (1.2-3.4) Monocytes # (Auto) 0.53 K/uL (0.11-0.59) Eosinophils # (Auto) 0.04 K/uL (0-0.5) Basophils # (Auto) 0.02 K/uL (0-0.2) RDW Standard Deviation 40.6 fL (36.4-46.3) RDW Coefficient of Variation 12.6 % (11.5-14.5) Immature Granulocyte % (Auto) 0.2 % Immature Granulocyte # (Auto) 0.02 K/uL (0.00-0.02) Anion Gap 6.0 mmol/L (3-11) Est Creatinine Clear Calc Drug Dose 112.4 ml/min Estimated GFR () 127.0 Estimated GFR (Non- 109.6 BUN/Creatinine Ratio 12.0 (10-20) Calcium Level 9.3 mg/dl (8.5-10.1) Total Bilirubin 0.6 mg/dl (0.2-1) Aspartate Amino Transf (AST/SGOT) 9 U/L (15-37) Alanine Aminotransferase (ALT/SGPT) 16 U/L (12-78) Alkaline Phosphatase 46 U/L (45-117) Total Protein 7.3 gm/dl (6.4-8.2) Albumin 4.2 gm/dl (3.4-5.0) Globulin 3.1 gm/dl (2.5-4.0) Albumin/Globulin Ratio 1.4 (0.9-2) Lipase 57 U/L (73-393) Human Chorionic Gonadotropin, Quant 68012 mIU/mL Urine Color YELLOW Urine Appearance CLEAR (CLEAR) Urine pH 8.5 (4.5-7.5) Urine Specific [place] 1.017 (1.000-1.030) Urine Protein NEG (NEG) Urine Glucose (UA) NEG (NEG) Urine Ketones 1+ (NEG) Urine Occult Blood NEG (NEG) Urine Nitrite NEG (NEG) Urine Bilirubin NEG (NEG) Urine Urobilinogen NEG (NEG) Urine Leukocyte Esterase NEG (NEG) Medications Administered Medications (Trade) Dose Ordered Sig/Che Route Start Time Stop Time Status Last Admin Dose Admin Sodium Chloride 1,000 ml @ 999 mls/hr Q1H1M ONCE IV 06/21/17 14:15 06/21/17 15:15 DC 06/21/17 15:03 999 MLS/HR Sodium Chloride 1,000 ml @ 999 mls/hr Q1H1M ONCE IV 06/21/17 14:15 06/21/17 15:15 DC 06/21/17 14:15 999 MLS/HR Ondansetron HCl (Zofran Inj) 4 mg Q2H PRN IV 06/21/17 14:15 06/21/17 17:44 DC 06/21/17 15:02 4 MG ED Course Patient was seen and examined Vital signs including blood pressure were reviewed medications list was verified with patient Labs were obtained, and a saline lock was established The patient was medicated with Zofran 4 mg IV and hydrated with 2 L normal saline Upon reevaluation, the patient was feeling much better. She was tolerating deya anup and crackers. We discussed her workup. She voiced understanding, was comfortable being discharged home. I reviewed discharge instructions the patient. They voiced understanding and had no further questions. Medical Decision Differential diagnosis: Hyperemesis gravidarum, viral versus bacterial GI illness, bowel obstruction, pancreatitis, retained stone This patient is a 22-year-old female presents to the emergency department with persistent vomiting over the last 4 days. She is approximately 5-6 weeks . On exam, she was dehydrated. Her abdomen was benign. There is no leukocytosis. HCG is appropriate. This is likely hyperemesis gravidarum. The patient had good symptomatic relief for the emergency department, and was tolerating a diet. I believe she is stable to be discharged home with Zofran and close follow-up from her [facility]. She was comfortable with this plan. She agreed to return to the ER with any new or persistent symptoms This chart was completed in part utilizing [employer] Voice Recognition software. Attempts were made to minimize the grammatical errors, random word insertions, pronoun errors and incomplete sentences. Any formal questions or concerns about the content, text or information contained within the body of this dictation should be directly addressed to the provider for clarification. Medication Reconcilliation Current Medication List: was personally reviewed by me Blood Pressure Screening Patient's blood pressure: Normal blood pressure Impression Primary Impression: Vomiting Departure Information Dispostion Home / Self-Care Condition GOOD Prescriptions Ondasetron Odt (ZOFRAN ODT) 4 Mg Tab 4 MG SL Q6H for Nausea, #20 TAB Prov: Suze Santana PA-C 06/21/17 Referrals No Doctor, Assigned (PCP) Patient Instructions My [facility] Additional Instructions Stay well-hydrated with sports drinks such as Gatorade. I would stick to a clear liquid diet for 24 hours. If you are feeling better after 24 hours, you may advance the diet to a bland diet. Please take Zofran every 6 hours as needed for nausea please follow-up with your primary care physician and her [facility] doctor as soon as possible. Please call Saturday morning for a follow-up appointment. Return to the emergency department if you have any of the following symptoms: -Fever -Persistent vomiting - Persistent diarrhea -Lethargy -Chest pain -Shortness of breath - abdominal pain
[2017-06-21 14:59] LABS: BASO % 0.2 %; BASO ABS # 0.02 K/uL (0-0.2); EOS % 0.4 %; EOS ABS # 0.04 K/uL (0-0.5); HEMATOCRIT 42.8 % (37-47); HEMOGLOBIN 15.2 g/dL (12.0-16.0); IG# 0.02 K/uL (0.00-0.02); LYMPH % 9.4 %; LYMPH ABS # 0.84 K/uL (1.2-3.4); MEAN CELL VOLUME 87.7 fL (80-100); MEAN CORPUSCULAR HEMOGLOBIN 31.1 pg (25-34); MEAN CORPUSCULAR HGB CONC 35.5 g/dl (32-36); MEAN PLATELET VOLUME 9.6 fL (7.4-10.4); MONO ABS # 0.53 K/uL (0.11-0.59); NEUT % 83.8 %; NEUT ABS # 7.45 K/uL (1.4-6.5); PLATELET COUNT 241 K/uL (130-400); RED CELL DISTRIBUTION WIDTH CV 12.6 % (11.5-14.5); RED CELL DISTRIBUTION WIDTH SD 40.6 fL (36.4-46.3)
[2017-06-21 15:17] LABS: ALBUMIN 4.2 gm/dl (3.4-5.0); CALCIUM 9.3 mg/dl (8.5-10.1); CREATININE 0.77 mg/dl (0.60-1.20); POTASSIUM 3.8 mmol/L (3.5-5.1)
[2017-06-21 15:20] LABS: TOTAL PROTEIN 7.3 gm/dl (6.4-8.2)
[2017-06-21] MEDS ORDERED: AZITTAB PO (16:02)
[2017-06-21] MEDS ORDERED: ONDA4TAB10 SL (16:49)
[2017-06-21 17:17] VITALS: BP 110/64; PULSE 80; O2SAT 99
== END 2017-06-21 17:18 | disposition home or self-care (01) ==
LOC: C.EDB 13:41
DX: O21.9 Vomiting of pregnancy, unspecified (principal); O99.281 Endocrine, nutritional and metabolic diseases complicating pregnancy, first trimester; Z3A.01 Less than 8 weeks gestation of pregnancy; E86.0 Dehydration; Z87.01 Personal history of pneumonia (recurrent); Z87.440 Personal history of urinary (tract) infections; Z90.49 Acquired absence of other specified parts of digestive tract; Z80.9 Family history of malignant neoplasm, unspecified; Z83.3 Family history of diabetes mellitus; Z87.891 Personal history of nicotine dependence

== ENCOUNTER → 2017-07-08 | Outpatient (CLI) | payer OTHER ==
[~2017-07-08] MED LIST changes: +AZITTAB PO
[2017-07-08 12:44] LABS: BASO % 0.3 %; BASO ABS # 0.03 K/uL (0-0.2); EOS % 3.2 %; EOS ABS # 0.32 K/uL (0-0.5); HEMOGLOBIN 14.4 g/dL (12.0-16.0); IG# 0.04 K/uL (0.00-0.02); LYMPH % 13.5 %; LYMPH ABS # 1.36 K/uL (1.2-3.4); MEAN CELL VOLUME 90.1 fL (80-100); MEAN CORPUSCULAR HEMOGLOBIN 30.9 pg (25-34); MEAN CORPUSCULAR HGB CONC 34.3 g/dl (32-36); MEAN PLATELET VOLUME 10.3 fL (7.4-10.4); MONO % 5.9 %; MONO ABS # 0.59 K/uL (0.11-0.59); NEUT % 76.7 %; NEUT ABS # 7.72 K/uL (1.4-6.5); PLATELET COUNT 260 K/uL (130-400); RED CELL DISTRIBUTION WIDTH CV 13.1 % (11.5-14.5); RED CELL DISTRIBUTION WIDTH SD 42.6 fL (36.4-46.3); WHITE BLOOD COUNT 10.06 K/uL (4.8-10.8)
== END | disposition home or self-care (01) ==
LOC: C.LAB1850 10:10
PROVIDERS: ATTEND Obstetrics & Gynecology
DX: Z34.91 Encounter for supervision of normal pregnancy, unspecified, first trimester (principal)

== ENCOUNTER → 2017-10-08 | Outpatient (CLI) | payer OTHER ==
[~2017-10-08] MED LIST changes: -AZITTAB PO; -ONDA4TAB10 SL; +PRVHFAIN INH
== END | disposition home or self-care (01) ==
LOC: C.LABSPEC 16:30
PROVIDERS: ATTEND Obstetrics & Gynecology
DX: Z34.93 Encounter for supervision of normal pregnancy, unspecified, third trimester (principal); Z3A.00 Weeks of gestation of pregnancy not specified